=== PATIENT | male | born 1965 | race Caucasian/White ===

== ENCOUNTER → 2023-05-06 08:01 | Outpatient (REF) | payer OTHER, SELFPAY | LOC: RAD 08:01 | PROVIDERS: ATTENDING PHYSICIAN Emergency Medicine; FAMILY PHYSICIAN Family Medicine | DX: S92.302A Fracture of unspecified metatarsal bone(s), left foot, initial encounter for closed fracture (principal) | CPT/HCPCS: 73630 ==